=== PATIENT | male | born 1975 | race Two or more races ===

== ENCOUNTER 2017-10-09 18:50 | Emergency (ER) | payer OTHER ==
[~2017-10-09] VITALS: Ht 185.4 cm; Wt 114.8 kg
[2017-10-09 18:54] VITALS: BP 160/87
[2017-10-09] MEDS ORDERED: DEXAMETHASONE 4 MG/ML, 5ML ONE (21:14)
[2017-10-09] MEDS ORDERED: DEXAMETHASONE 4 MG TABLET ONE (21:15)
[2017-10-09] MEDS ORDERED: DEXAMETHASONE 4 MG TABLET PO ONE (21:30)
== END 2017-10-09 21:52 | disposition home or self-care (01) ==
LOC: ED 19:30
DX: J32.3 Chronic sphenoidal sinusitis (principal); J32.0 Chronic maxillary sinusitis; J32.2 Chronic ethmoidal sinusitis
CPT/HCPCS: 76380; 99284

== ENCOUNTER 2018-01-01 22:45 | Emergency (ER) | payer SELFPAY ==
[~2018-01-01] VITALS: Ht 185.4 cm; Wt 114.5 kg
[2018-01-01 22:51] VITALS: BP 137/96
[2018-01-01] MEDS ORDERED: DEXAMETHASONE 4 MG TABLET ONE (23:22)
[2018-01-01] MEDS ORDERED: DEXAMETHASONE 4 MG TABLET PO ONE (23:30)
== END 2018-01-01 23:56 | disposition home or self-care (01) ==
LOC: ED 23:37
DX: J02.8 Acute pharyngitis due to other specified organisms (principal); B97.89 Other viral agents as the cause of diseases classified elsewhere
CPT/HCPCS: 87081; 87147; 87880; 99284